=== PATIENT | female | born 1960 ===

== ENCOUNTER 2016-05-12 11:26 | Emergency (ER) | payer MEDICAID ==
[2016-05-12 11:26] VITALS: BMI 21.1
[2016-05-12 11:55] LABS: BASO % 0.8 % (0.0-2.0); EOS % 0.5 % (0.0-4.0); HEMATOCRIT 35.6 % (34.0-47.0); LYMPH # 2.6 K/uL (1.0-4.3); MEAN CELL VOLUME 84.8 fL (81.0-99.0); MEAN CORPUSCULAR HEMOGLOBIN 28.3 pg (27.0-31.0); MEAN CORPUSCULAR HGB CONC 33.4 g/dL (33.0-37.0); MEAN PLATELET VOLUME 7.7 fL (7.2-11.7); MONO # 0.8 K/uL (0.0-0.8); RED CELL DISTRIBUTION WIDTH 13.7 % (11.5-14.5); WHITE BLOOD COUNT 6.3 K/uL (4.8-10.8)
[2016-05-12 12:03] LABS: CHLORIDE 99 mmol/L (98-107); SODIUM 139 mmol/L (132-148)
[2016-05-12 12:05] LABS: GFR AFRICAN-AMERICAN > 60
[2016-05-12 12:06] LABS: ALB/GLOB RATIO 1.2 (1.0-2.1); ALKALINE PHOSPHATASE 92 U/L (38-126); ALT/SGPT 12 U/L (9-52); AST/SGOT 12 U/L (14-36); BILIRUBIN,TOTAL 0.3 mg/dL (0.2-1.3); BLOOD UREA NITROGEN 15 mg/dL (7-17); CARBON DIOXIDE 25 mmol/L (22-30); GLUCOSE,RANDOM 92 mg/dL (65-105); TOTAL PROTEIN 7.7 g/dL (6.3-8.3)
[2016-05-12 12:07] LABS: CALCIUM 9.1 mg/dl (8.6-10.4)
[2016-05-12] MEDS ORDERED: Potassium Chloride 20 mEq ER Tab PO STA (12:30)
[2016-05-12] MEDS ORDERED: Potassium Chloride 20 mEq ER Tab PO ONE (12:33)
--- NOTE | 2016-05-12 13:23 | C.PDOC ---
History Of Present Illness 55 yr old female presents to the ER stating she spent a night in [place] [facility] and was discharged this morning, went to the nursing home afterwards and was told to go to the ER since she still doesn't feel good. Patient is unable to quantify what she is feeling. Denies fever, vision changes, LOC, weakness or numbness. Patient is homeless. Time Seen by Provider: 05/12/16 11:30 Chief Complaint (Nursing): Cough, Cold, Congestion History Per: Patient History/Exam Limitations: no limitations Onset/Duration Of Symptoms: Days Current Symptoms Are (Timing): Still Present Location Of Pain: None Sick Contacts (Context): None Past Medical History Reviewed: Historical Data, Nursing Documentation, Vital Signs Vital Signs: Last Vital Signs Temp 98.8 F 05/12/16 11:28 Pulse 90 05/12/16 11:28 Resp 18 05/12/16 11:28 BP 155/96 H 05/12/16 11:28 Pulse Ox 99 05/12/16 13:25 - Medical History PMH: Anxiety, Arthritis, Back Problems, Bronchitis, Depression, Fractures (hx of fx R wrist and R side rib 1 mos ago), HTN - [facility] Procedures APPLICATION OF SPLINT (12/24/12) GROUP PSYCHOTHERAPY (04/01/15) INDIVID PSYCHOTHERAP NEC (01/20/13) INDIVIDUAL PSYCHOTHERAPY, SUPPORTIVE (04/01/15) INJECT/INFUSE NEC (11/03/12) INSERTION OF INFUSION DEV INTO R FEMOR VEIN, PERC APPROACH (03/14/16) INTRODUCTION OF VASOPRESSOR INTO PERIPH VEIN, PERC APPROACH (03/14/16) OTHER GROUP THERAPY (01/20/13) REMOV EXT IMMOBILIZATION (01/20/13) Family History: States: Hypertension - Social History Hx Alcohol Use: No Hx Substance Use: No Review Of Systems Except As Marked, All Systems Reviewed And Found Negative. Constitutional: Negative for: Fever Eyes: Positive for: Vision Change Neurological: Negative for: Weakness, Numbness Physical Exam - Physical Exam Appears: Well, Non-toxic, No Acute Distress Skin: Normal Color, Warm, Dry, No Rash Head: Atraumatic, Normacephalic Eye(s): bilateral: Normal Inspection, PERRL, EOMI Neck: Supple Chest: Symmetrical, No Tenderness Cardiovascular: Rhythm Regular, No Murmur Respiratory: Normal Breath Sounds, No Rales, No Rhonchi, No Wheezing Gastrointestinal/Abdominal: Normal Exam, Soft, No Tenderness, No Guarding, No Rebound Extremity: Normal ROM, No Swelling Neurological/Psych: Oriented x3, Normal Speech ED Course And Treatment - Laboratory Results Result Diagrams: 05/12/16 11:52 05/12/16 11:52 O2 Sat by Pulse Oximetry: 99 Medical Decision Making Medical Decision Making: PLAN: * CXR * CBC * Potassium Chloride PO * Zofran PO Pt stable in the ED no vomiting ambulated with steady gait requesting xanax Plan dc Disposition Counseled Patient/Family Regarding: Diagnosis, Need For Followup - Disposition Referrals: [facility] [Outside] Disposition: HOME/ ROUTINE Disposition Time: 13:34 Condition: GOOD Prescriptions: Potassium Chloride [K-Dur 20] 1 tab PO BID #25 tab Forms: General Discharge Instructions - Clinical Impression Clinical Impression: Hypokalemia, Homeless - Scribe Statement The provider has reviewed the documentation as recorded by the Perryibe Migdalia Carpenter Provider Attestation: All medical record entries made by the Perryibjenny were at my direction and personally dictated by me. I have reviewed the chart and agree that the record accurately reflects my personal performance of the history, physical exam, medical decision making, and the department course for this patient. I have also personally directed, reviewed, and agree with the discharge instructions and disposition.
[2016-05-12 13:52] VITALS: BP 116/79; PULSE 93; RESP 20; TEMP 98.5
[2016-05-12 13:55] VITALS: O2SAT 99
== END 2016-05-12 13:53 | disposition home or self-care (01) ==
LOC: C.ER 11:26
DX: E87.6 Hypokalemia (principal); Z59.0 Homelessness

== ENCOUNTER 2017-07-02 23:11 | Emergency (ER) | payer MEDICAID ==
[2017-07-02 23:12] VITALS: BMI 21.1
--- NOTE | 2017-07-02 23:30 | C.PDOC ---
History Of Present Illness 56 year old female presents to the emergency department after being brought in by ambulance. Patient was sent here from her senior care because they state she may have taken extra Xanax. Patient denies taking the extra Xanax, as well as chest pain, shortness of breath, and suicidal or homicidal ideation. Time Seen by Provider: 07/02/17 23:30 Chief Complaint (Nursing): Medical Clearance History Per: Patient, Other (Intermediate) History/Exam Limitations: no limitations Onset/Duration Of Symptoms: Hrs Severity: None Pain Scale Rating Of: 0 Reports Recently: Treated By A Physician Recent travel outside of the [place]: No Additional History Per: Patient Past Medical History Reviewed: Historical Data, Nursing Documentation, Vital Signs Vital Signs: Last Vital Signs Temp 99.1 F 07/03/17 05:30 Pulse 87 07/03/17 05:30 Resp 16 07/03/17 05:30 BP 135/76 07/03/17 05:30 Pulse Ox 97 07/03/17 05:30 - Medical History PMH: Anxiety, Arthritis, Back Problems, Bronchitis, Depression, Fractures (Rib & wrist), Gall Bladder Disease (Cholecystitis), HTN, Seizures Denies: Diabetes, Hepatitis, HIV, Chronic Kidney Disease, Sexually Transmitted Disease Surgical History: No Surg Hx - [facility] Procedures APPLICATION OF SPLINT (12/24/12) GROUP PSYCHOTHERAPY (04/01/15) INDIVID PSYCHOTHERAP NEC (01/20/13) INDIVIDUAL PSYCHOTHERAPY, SUPPORTIVE (04/01/15) INJECT/INFUSE NEC (11/03/12) INSERTION OF INFUSION DEV INTO R FEMOR VEIN, PERC APPROACH (03/14/16) INTRODUCTION OF VASOPRESSOR INTO PERIPH VEIN, PERC APPROACH (03/14/16) OTHER GROUP THERAPY (01/20/13) REMOV EXT IMMOBILIZATION (01/20/13) Family History: States: Hypertension - Social History Hx Alcohol Use: No Hx Substance Use: Yes (Opiates and Benzos) - Immunization History Hx Tetanus Toxoid Vaccination: No Hx Influenza Vaccination: No Hx Pneumococcal Vaccination: No Review Of Systems Cardiovascular: Negative for: Chest Pain Respiratory: Negative for: Shortness of Breath Psych: Negative for: Suicidal ideation, Other (homicidal ideation) Physical Exam - Physical Exam Appears: Non-toxic, No Acute Distress (calm, cooperative), Confused ( occasionally), Other (slightly disheveled) Skin: Warm, Dry Head: Atraumatic Eye(s): bilateral: Normal Inspection Oral Mucosa: Moist Neck: Supple Chest: Symmetrical Cardiovascular: Rhythm Regular Respiratory: No Rales, No Rhonchi, No Wheezing Gastrointestinal/Abdominal: Soft, No Tenderness, No Guarding, No Rebound Back: Normal Inspection Extremity: No Tenderness Extremity: Bilateral: Atraumatic Neurological/Psych: Oriented x3, Normal Speech, Normal Cognition Gait: Steady ED Course And Treatment - Laboratory Results Result Diagrams: 07/03/17 00:10 07/03/17 00:10 ECG: Interpreted By Me, Viewed By Me (73) ECG Rhythm: Nonspecific Changes O2 Sat by Pulse Oximetry: 98 (RA) Pulse Ox Interpretation: Normal - Radiology CXR: Interpreted by Me, Viewed By Me CXR Interpretation: No: Infiltrates, Fracture, Pnemothorax Progress Note: Plan: CT Head w/o Contrast. EKG. Acetaminophen Stat. CMP. Drug Screen. Salicylate. CBC. CXR one view. Glucose POC. NaCl IV Fluids. Urinalysis Reevaluation Time: 05:44 Reassessment Condition: Improved Disposition Counseled Patient/Family Regarding: Studies Performed, Diagnosis, Need For Followup - Disposition Referrals: [facility] [Outside] [facility] [Outside] Disposition: HOME/ ROUTINE Disposition Time: 23:30 Condition: FAIR Instructions: Generalized Anxiety Disorder, Anxiety, Adult (DC) Forms: [employer] ([employer]) - Clinical Impression Clinical Impression: Medical assessment, Anxiety - Scribe Statement The provider has reviewed the documentation as recorded by the Scribe (Stalin Tineo) Provider Attestation: All medical record entries made by the Scribe were at my direction and personally dictated by me. I have reviewed the chart and agree that the record accurately reflects my personal performance of the history, physical exam, medical decision making, and the department course for this patient. I have also personally directed, reviewed, and agree with the discharge instructions and disposition.
[2017-07-03] MEDS ORDERED: Sodium Chloride 0.9% 1,000 ML IV ONE (00:09)
[2017-07-03 00:13] LABS: BASO # 0.1 K/uL (0.0-0.2); BASO % 1.5 % (0.0-2.0); EOS # 0.3 K/uL (0.0-0.7); LYMPH # 3.8 K/uL (1.0-4.3); LYMPH % 41.6 % (20.0-40.0); MEAN CELL VOLUME 82.3 fL (81.0-99.0); MEAN CORPUSCULAR HEMOGLOBIN 28.6 pg (27.0-31.0); MEAN CORPUSCULAR HGB CONC 34.7 g/dL (33.0-37.0); MEAN PLATELET VOLUME 8.2 fL (7.2-11.7); MONO # 0.8 K/uL (0.0-0.8); NEUT # 4.1 K/uL (1.8-7.0); NEUT % 44.9 % (50.0-75.0); RBC 4.2 Mil/uL (3.80-5.20); RED CELL DISTRIBUTION WIDTH 16.4 % (11.5-14.5); WHITE BLOOD COUNT 9.1 K/uL (4.8-10.8)
[2017-07-03 00:41] LABS: CALCIUM 9.6 mg/dl (8.6-10.4); GFR AFRICAN-AMERICAN > 60; GFR NON-AFRICAN AMERICAN > 60
[2017-07-03 00:45] LABS: SQUAMOUS EPITHIAL < 1 /hpf (0-5); URINE BACTERIA RARE (<OCC); URINE BILIRUBIN NEGATIVE (NEGATIVE); URINE BLOOD 1+ (NEGATIVE); URINE CLARITY Clear (Clear); URINE COLOR Colorless (YELLOW); URINE GLUCOSE (UA) NORMAL (Normal); URINE LEUKOCYTE ESTERASE TRACE Leu/uL (Negative); URINE PROTEIN NEGATIVE (NEGATIVE); URINE UROBILINOGEN NORMAL mg/dL (0.2-1.0)
[2017-07-03 01:01] LABS: BENZODIAZEPINES, UR NEGATIVE (NEGATIVE); OPIATES, UR NEGATIVE (NEGATIVE); PHENCYCLIDINE, UR NEGATIVE (NEGATIVE)
[2017-07-03 01:01] LABS: ALBUMIN 4.1 g/dL (3.5-5.0); ALT/SGPT 9 U/L (9-52); AST/SGOT 26 U/L (14-36); BLOOD UREA NITROGEN 12 mg/dL (7-17)
[2017-07-03 01:14] LABS: SALICYLATE < 1.0 mg/dL 1
[2017-07-03 01:27] LABS: BARBITURATES, UR POSITIVE (NEGATIVE)
[2017-07-03 05:31] VITALS: BP 135/76; PULSE 87; RESP 16; TEMP 99.1
[2017-07-03 05:46] VITALS: O2SAT 98
--- NOTE | 2017-07-03 07:35 | CT ---
PROCEDURE: CT HEAD WITHOUT CONTRAST HISTORY: confusion COMPARISON: CT head 06/06/2017 TECHNIQUE: Axial computed tomography images were obtained through the head/brain without intravenous contrast. Coronal and sagittal reconstructions were also acquired. Radiation dose: Total exam DLP = 896 mGy-cm. FINDINGS: Streak and motion artifact limit evaluation of the skullbase. HEMORRHAGE: No intracranial hemorrhage seen. BRAIN: No intraparenchymal mass identified. There is ventricular and sulcal prominence, consistent with age related volume loss. There are areas of periventricular white matter hypodensity, consistent with chronic small vessel ischemic changes.. VENTRICLES: See above CALVARIUM: Intact PARANASAL SINUSES: Visualized paranasal sinuses are clear. MASTOID AIR CELLS: Visualized mastoid air cells are clear. OTHER FINDINGS: None. IMPRESSION: No mass, hemorrhage, or acute infarct identified. Age-related changes as above. Preliminary impression was provided by [employer]. Findings are concordant.
--- NOTE | 2017-07-03 07:48 | RAD ---
HISTORY: Detox/Psy COMPARISON: Chest x-ray 03/25/2016 TECHNIQUE: Chest one view . FINDINGS: LUNGS: No focal consolidation is seen. PLEURA: No pleural effusion is identified. CARDIOVASCULAR: Heart size is within normal limits. OSSEOUS STRUCTURES: No acute fracture identified. VISUALIZED UPPER ABDOMEN: Unremarkable. OTHER FINDINGS: None. IMPRESSION: No acute cardiopulmonary process seen.
--- NOTE | 2017-07-03 22:58 | CARD ---
APPROVED REPORT EKG Measurement Heart [id number] <Conclusion> Normal sinus rhythm Normal ECG
== END 2017-07-03 06:35 | disposition home or self-care (01) ==
LOC: SUPCPDRO 23:11 → C.ER 23:11
DX: Z00.00 Encounter for general adult medical examination without abnormal findings (principal); F41.9 Anxiety disorder, unspecified; I10 Essential (primary) hypertension
CPT/HCPCS: 70450; 71045; 80053; 80320; 80324; 80329; 80345; 80346; 80349; 80353; 80358; 80361; 81001; 82948; 83992; 85025; 93005; 99284; J7040

== ENCOUNTER 2017-08-29 23:40 | Emergency (ER) | payer MEDICAID ==
[2017-08-29 23:41] VITALS: BMI 21.1
[2017-08-29 23:59] VITALS: RESP 20
--- NOTE | 2017-08-30 00:09 | C.PDOC ---
History Of Present Illness Patient sent in from [facility] because she might have taken extra medication or ETOH. Denies suicidal ideation or homicidal ideation. Patient states she just wants to sleep. Time Seen by Provider: 08/30/17 00:09 Chief Complaint (Nursing): Substance Abuse History Per: Patient History/Exam Limitations: no limitations Onset/Duration Of Symptoms: Hrs Current Symptoms Are (Timing): Still Present Suicide/Self Injury Attempted (Context): None Severity: None Pain Scale Rating Of: 0 Associated Symptoms: denies: Depression, Suicidal Thoughts, Other (Homicidal ideation) Recent travel outside of the [place]: No Past Medical History Reviewed: Historical Data, Nursing Documentation, Vital Signs Vital Signs: Last Vital Signs Temp 98.8 F 08/29/17 23:47 Pulse 105 H 08/29/17 23:54 Resp 20 08/29/17 23:54 BP 142/97 H 08/29/17 23:54 Pulse Ox 94 L 08/30/17 02:01 - Medical History PMH: Anxiety, Arthritis, Back Problems, Bronchitis, Depression, Fractures (Rib & wrist), Gall Bladder Disease (Cholecystitis), HTN, Seizures Denies: Diabetes, Hepatitis, HIV, Chronic Kidney Disease, Sexually Transmitted Disease - [facility] Procedures APPLICATION OF SPLINT (12/24/12) GROUP PSYCHOTHERAPY (04/01/15) INDIVID PSYCHOTHERAP NEC (01/20/13) INDIVIDUAL PSYCHOTHERAPY, SUPPORTIVE (04/01/15) INJECT/INFUSE NEC (11/03/12) INSERTION OF INFUSION DEV INTO R FEMOR VEIN, PERC APPROACH (03/14/16) INTRODUCTION OF VASOPRESSOR INTO PERIPH VEIN, PERC APPROACH (03/14/16) OTHER GROUP THERAPY (01/20/13) REMOV EXT IMMOBILIZATION (01/20/13) Family History: States: Hypertension - Social History Hx Alcohol Use: Yes Hx Substance Use: Yes (Opiates and Benzos) - Immunization History Hx Tetanus Toxoid Vaccination: No Hx Influenza Vaccination: No Hx Pneumococcal Vaccination: No Review Of Systems Constitutional: Negative for: Fever, Chills Cardiovascular: Negative for: Chest Pain, Palpitations Respiratory: Negative for: Cough, Shortness of Breath Gastrointestinal: Negative for: Nausea, Vomiting Physical Exam - Physical Exam Appears: Non-toxic Skin: Warm, Dry Head: Normacephalic Oral Mucosa: Moist Chest: Symmetrical, No Tenderness Cardiovascular: Rhythm Regular Respiratory: No Rales, No Rhonchi, No Wheezing Gastrointestinal/Abdominal: Soft, No Tenderness Neurological/Psych: Oriented x3 ED Course And Treatment - Laboratory Results Result Diagrams: 08/30/17 00:15 08/30/17 00:15 O2 Sat by Pulse Oximetry: 94 (Room air) Pulse Ox Interpretation: Normal Progress Note: Blood work and urinalysis ordered. Reevaluation Time: 04:43 Reassessment Condition: Improved Disposition Counseled Patient/Family Regarding: Studies Performed, Diagnosis, Need For Followup - Disposition Referrals: [facility] [Outside] Disposition: HOME/ ROUTINE Disposition Time: 00:09 Condition: FAIR Instructions: Polysubstance Abuse (DC) Forms: [employer] (Gibraltarian) - Clinical Impression Clinical Impression: Polysubstance abuse - Scribe Statement The provider has reviewed the documentation as recorded by the Scribjenny Benítez All medical record entries made by the Scribe were at my direction and personally dictated by me. I have reviewed the chart and agree that the record accurately reflects my personal performance of the history, physical exam, medical decision making, and the department course for this patient. I have also personally directed, reviewed, and agree with the discharge instructions and disposition.
[2017-08-30 00:18] LABS: BASO # 0.1 K/uL (0.0-0.2); BASO % 0.7 % (0.0-2.0); EOS # 0.3 K/uL (0.0-0.7); EOS % 3.6 % (0.0-4.0); HEMOGLOBIN 12.3 g/dL (11.0-16.0); LYMPH # 3.2 K/uL (1.0-4.3); LYMPH % 35.6 % (20.0-40.0); MEAN CELL VOLUME 83.7 fL (81.0-99.0); MEAN CORPUSCULAR HEMOGLOBIN 29.4 pg (27.0-31.0); MEAN CORPUSCULAR HGB CONC 35.1 g/dL (33.0-37.0); MEAN PLATELET VOLUME 8.6 fL (7.2-11.7); MONO # 0.7 K/uL (0.0-0.8); MONO % 7.6 % (0.0-10.0); NEUT # 4.6 K/uL (1.8-7.0); NEUT % 52.5 % (50.0-75.0); RBC 4.17 Mil/uL (3.80-5.20); RED CELL DISTRIBUTION WIDTH 15.1 % (11.5-14.5); WHITE BLOOD COUNT 8.9 K/uL (4.8-10.8)
[2017-08-30 00:21] LABS: SQUAMOUS EPITHIAL 15 /hpf (0-5); URINE BILIRUBIN NEGATIVE (NEGATIVE); URINE BLOOD NEGATIVE (NEGATIVE); URINE CLARITY Hazy (Clear); URINE COLOR Yellow (YELLOW); URINE GLUCOSE (UA) NORMAL (Normal); URINE LEUKOCYTE ESTERASE 3+ Leu/uL (Negative); URINE PROTEIN NEGATIVE (NEGATIVE); URINE UROBILINOGEN NORMAL mg/dL (0.2-1.0)
[2017-08-30 00:38] LABS: ALB/GLOB RATIO 1.7 (1.0-2.1); ALBUMIN 4.4 g/dL (3.5-5.0); ALT/SGPT 20 U/L (9-52); AST/SGOT 12 U/L (14-36); BLOOD UREA NITROGEN 15 mg/dL (7-17); CALCIUM 9.4 mg/dl (8.6-10.4); GFR AFRICAN-AMERICAN > 60; GFR NON-AFRICAN AMERICAN > 60
[2017-08-30 00:58] LABS: BENZODIAZEPINES, UR NEGATIVE (NEGATIVE); OPIATES, UR NEGATIVE (NEGATIVE); PHENCYCLIDINE, UR NEGATIVE (NEGATIVE)
[2017-08-30 01:29] LABS: BARBITURATES, UR POSITIVE (NEGATIVE)
[2017-08-30 05:12] VITALS: BP 134/78; PULSE 90; TEMP 98; O2SAT 96
== END 2017-08-30 05:49 | disposition home or self-care (01) ==
LOC: C.ER 23:40
DX: F19.10 Other psychoactive substance abuse, uncomplicated (principal); I10 Essential (primary) hypertension; F41.9 Anxiety disorder, unspecified

== ENCOUNTER → 2017-10-04 05:46 | Emergency (ER) | payer MEDICAID ==
[2017-10-04 05:46] VITALS: BMI 21.1
== END | disposition left against medical advice (07) ==
LOC: C.ER 05:46
DX: Z02.89 Encounter for other administrative examinations (principal); Z00.00 Encounter for general adult medical examination without abnormal findings